=== PATIENT | male | born 1975 | race Caucasian/White ===

== ENCOUNTER 2016-11-26 12:36 | Emergency (ER) | payer MEDICAID ==
[~2016-11-26] VITALS: Ht 172.7 cm; Wt 70.3 kg
[2016-11-26] MEDS ORDERED: NKM (12:43)
[2016-11-26] MEDS ORDERED: Metoclopramide 10mg/10ml Liq ORAL ONE (13:45)
[2016-11-26] MEDS ORDERED: IMITREX50 MG ORAL (15:02)
[2016-11-26 15:10] VITALS: BP 133/88
--- NOTE | 2016-11-26 17:23 | Emergency Room Report ---
History of Present Illness General Chief Complaint: Eye Problems Source: Patient Present Illness HPI 41YOM [employer] patient with seeing spots "like when you look sun too long." Already resolved. Occurred when looking at computer this morning First was "tunnel vision" only in center then spots moved to bilateral sides Doesnt wear contacts No trauma Denies curtain coming down, painful vision loss, painless vision loss Father had spontaneous retinal detachment so wants to rule that out History of migraines with auras, feels like "could be migraine." Now assoc with "pressure behind right eye." Allergies: Coded Allergies: POLLEN EXTRACTS (Verified Allergy, Unknown, 11/26/16) Patient History Past Medical History: migraines Past Surgical History: none Pertinent Family History: none Social History: Denies: alcohol use, drug use, smoking Immunizations: UTD Reviewed Nursing Documentation: PMH: Agreed, PSxH: Agreed Nursing Documentation-PMH Past Medical History: No Stated History Review of Systems All Other Systems: negative except mentioned in HPI Physical Exam Vital Signs Date Time Temp Pulse Resp B/P Pulse Ox O2 Delivery O2 Flow Rate FiO2 11/26/16 12:38 98.1 88 16 135/91 96 Room Air Sp02 EP Interpretation: reviewed, normal General Appearance: normal inspection, well appearing, no apparent distress, alert, GCS 15, non-toxic Head: normocephalic, atraumatic, other - No ttp to right temporal area Eyes: bilateral eye EOMI, bilateral eye PERRL ENT: normal ENT inspection, hearing grossly normal, normal voice Neck: normal inspection, full range of motion, supple, no bony tend Respiratory: normal inspection, lungs clear, normal breath sounds, no respiratory distress, no retraction, no wheezing Cardiovascular #1: regular rate, rhythm, no edema Gastrointestinal: normal inspection, normal bowel sounds, non tender, soft, no guarding, no hernia Genitourinary: no CVA tenderness Musculoskeletal: normal inspection, back normal, normal range of motion, Jina' s Sign negative Neurologic: normal inspection, alert, oriented x3, responsive, 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 Likely migraine CT head neg Bedside sono of right orbit does not demonstrate retinal detachment DC with sumatriptan as needed for migraines Gave Dr Barragan info for Optham followup, patient states "going on a trip tomorrow", cant go until Sun I stressed urgency of followup but patient preferring to wait Last Vital Signs Date Time Temp Pulse Resp B/P Pulse Ox O2 Delivery O2 Flow Rate FiO2 11/26/16 15:10 97.5 61 16 133/88 94 Room Air Status: improved Disposition: HOME, SELF-CARE Condition: Improved Scripts Sumatriptan Succinate* (IMITREX*) 50 Mg Tablet 50 MG ORAL DAILY PRN MIGRAINE for 7 Days, #14 TAB Prov: RUSSEL IBARRA M.D. 11/26/16 Patient Instructions: Blurred Vision Additional Instructions: - Call Guillaume Barker for Optham appoitment this week. [phone] - Go to nearest ER for severe headache, loss of vision - Take Sumatriptan as needed for migraine RUSSEL IBARRA M.D. Nov 26, 2016 17:23
--- NOTE | 2016-11-27 08:31 | Diagnostic Imaging Report ---
Indication: PAIN Technique: Continuous helical CT scanning of the head was performed without intravenous contrast material. Axial and coronal 5 mm sections were generated. Radiation dose was minimized using automated exposure control Dose: Total Dose Length Product - DLP [address] Dose Index - CTDIvol(s) 70.38 mGy. Comparison: None Findings: The ventricular system is normal in size and configuration. There is no shift of midline structures. No abnormal extra-axial fluid collections are noted. There is no evidence of intracerebral bleeding. No other abnormal high or low density areas are noted within the brain. There is maxillary, sphenoid, ethmoid sinus disease Impression: Normal CT scan of the head without contrast material. The CT scanner at [facility] is accredited by the [employer] and the scans are performed using protocols designed to limit radiation exposure to as low as reasonably achievable to attain images of sufficient resolution adequate for diagnostic evaluation.
== END 2016-11-26 15:10 | disposition home or self-care (01) ==
LOC: EMR 13:10
DX: H53.8 Other visual disturbances (principal); G43.109 Migraine with aura, not intractable, without status migrainosus; Z91.048 Other nonmedicinal substance allergy status
CPT/HCPCS: 70450; 99284